=== PATIENT | female | born 1995 | race Caucasian/White ===

== ENCOUNTER 2017-01-04 11:32 | Emergency (ER) | payer OTHER ==
[~2017-01-04] VITALS: Ht 162.6 cm; Wt 79.8 kg
[~2017-01-04 11:32] MED LIST: FLOMAX0.4 MG PO; JUNEL FE 1/21 TABLET PO; PERCOCET 5/31 TABLET PO; TORADOL10 MG PO; ZOFRAN4 MG PO
[2017-01-04 12:37] LABS: HEMATOCRIT 41.1 % (36.0-46.0); MCH 29.5 PG (29.0-34.0); MCHC 33.6 G/DL (30.0-36.0); MCV 87.8 FL (83-99); MEAN PLAT.VOLUME 9.9 uM^3 (9.5-12.4); PLATELET COUNT 415 K/uL (156-360); RBC DIS.WIDTH-CV 13.1 % (11.8-14.6); RED BLOOD COUNT 4.68 M/uL (3.80-5.20); WHITE BLOOD COUNT 13.4 K/uL (4.1-10.2)
[2017-01-04 12:51] LABS: CHLORIDE 109 mEq/L (99-109); POTASSIUM 3.9 mEq/L (3.7-5.4); SODIUM 140 mEq/L (136-147)
[2017-01-04 12:53] LABS: GLUCOSE 113 mg/dL (70-99)
[2017-01-04 12:55] LABS: ANION GAP 10 MEQ/L (2-14)
[2017-01-04 12:57] LABS: GFR ESTIMATE (CALCULATED) > 59 mL/min/
[2017-01-04 12:58] LABS: UREA NITROGEN (BUN) 10 mg/dL (9-23)
[2017-01-04 13:21] LABS: ADD MIUA? YES; BILIRUBIN NEGATIVE; BLOOD LARGE; GLUCOSE (STRIP) NEGATIVE; KETONES NEGATIVE; LEUKOCYTES TRACE; NITRITE NEGATIVE; PROTEIN (STRIP) 100; SPECIFIC GRAVITY 1.024 (1.000-1.030); UROBILINOGEN 0.2 MG/DL (0.2-1.0)
[2017-01-04 13:23] LABS: COLOR DK YELLOW ((YELLOW))
[2017-01-04 13:32] LABS: BACTERIA 1+ /HPF; CALCIUM OXALATE CRYSTALS 3+ /HPF; EPITHELIAL CELLS 2+ /HPF; MUCUS 2+ /LPF; RED BLOOD CELLS TNTC /HPF (0-5); UCUL ADDED? YES
[2017-01-04 14:00] LABS: QUANTITATIVE HCG < 4.0 MIU/ML
[2017-01-04] MEDS ORDERED: FLOMAX0.4 MG PO (15:16)
[2017-01-04] MEDS ORDERED: KEFLEX500 MG PO (15:16)
[2017-01-04] MEDS ORDERED: ZOFRAN4 MG PO (15:16)
[2017-01-04] MEDS ORDERED: PERCOCET 5/31 TABLET PO (15:16)
[2017-01-04 15:30] VITALS: BP 109/63
== END 2017-01-04 15:32 | disposition home or self-care (01) ==
LOC: EME 11:32
DX: N13.2 Hydronephrosis with renal and ureteral calculous obstruction (principal); N12 Tubulo-interstitial nephritis, not specified as acute or chronic; Z87.442 Personal history of urinary calculi
CPT/HCPCS: 74176; 80048; 81003; 84702; 85027; 87086; 99281; 99285; J1885; J2270; J2405; J3010; J7030